=== PATIENT | male | born 1970 | race Two or more races ===

== ENCOUNTER 2022-11-08 03:23 | Emergency (ER) | payer OTHER ==
[~2022-11-08] VITALS: Ht 162.6 cm; Wt 63.6 kg
[2022-11-08 03:28] VITALS: BP 127/83; PULSE 109; RESP 15; TEMP 98.7
[2022-11-08] MEDS ORDERED: AMOX250C4 PO (04:05)
== END 2022-11-08 04:15 | disposition home or self-care (01) ==
LOC: EMS 03:26
DX: J02.8 Acute pharyngitis due to other specified organisms (principal); B34.9 Viral infection, unspecified
CPT/HCPCS: 99283; Z7502